=== PATIENT | female | born 1960 | race Caucasian/White ===

== ENCOUNTER → 2020-07-16 14:18 | Outpatient (CLI) | payer OTHER, SELFPAY ==
--- NOTE | 2020-07-16 | DI.MG.S_ITS ---
BILATERAL DIGITAL SCREENING MAMMOGRAM 3D/2D WITH CAD: 07/16/2020 CLINICAL: Routine screening. Comparison is made to exams dated: 12/21/2016 mammogram and 02/28/2015 mammogram - [facility]. The tissue of both breasts is heterogeneously dense. This may lower the sensitivity of mammography. Current study was also evaluated with a Computer Aided Detection (CAD) system. No significant masses, calcifications, or other findings are seen in either breast. There has been no significant interval change. IMPRESSION: NEGATIVE There is no mammographic evidence of malignancy. A 1 year screening mammogram is recommended. This exam was interpreted at Station ID: [id number]. NOTE: For mammograms, a report in lay terms will be sent to the patient. Approximately 15% of breast malignancies will not be visualized mammographically. In the management of a palpable breast mass, a negative mammogram must not discourage biopsy of a clinically suspicious lesion. Electronically Signed By: Johnson carrillo/tahmina:07/18/2020 09:18:59 letter sent: Normal Exam ACR BI-RADS Category 1: Negative 3341F
== END ==
PROVIDERS: PCP Nurse Practitioner Family; Referring Provider Nurse Practitioner Family; Visit Provider Nurse Practitioner Family
DX: Z12.31 Encounter for screening mammogram for malignant neoplasm of breast (principal)
CPT/HCPCS: 77063; 77067

== ENCOUNTER → 2020-07-18 10:21 | Outpatient (CLI) | payer OTHER, SELFPAY ==
[2020-07-18 12:16] LABS: COVID19 -Nasal RAPID Negative (Negative)
== END ==
PROVIDERS: PCP Nurse Practitioner Family; Visit Provider Surgery
DX: Z01.812 Encounter for preprocedural laboratory examination (principal); Z20.822 Contact with and (suspected) exposure to COVID-19
CPT/HCPCS: 87635; C9803

== ENCOUNTER 2020-07-19 13:12 | Day surgery (SDC) | payer OTHER, SELFPAY ==
[2020-07-19 13:36] VITALS: BP 134/77; PULSE 78; RESP 12; TEMP 36.8; O2SAT 99; BMI 23.2
[2020-07-19] MEDS: SODIUM CHLORIDE 0.9% 1,000 ML 200 ML IV (13:51)
--- NOTE | 2020-07-19 14:50 | P.HP_ITS ---
History of Present Illness History of Present Illness Date Patient Seen: 07/19/20 Time Patient Seen: 14:50 Chief [place] [facility] [place]: This is a 60-year-old woman here for her 1st screening colonoscopy. She denies any melena, hematochezia, unexplained abdominal pain, unexplained weight loss, change in bowel habit, personal or family history of colon polyps or colon cancers. She says she is otherwise in very good health. ROS: Thirteen system review is otherwise negative other than as mentioned below and in HPI. PE: GENERAL: Well groomed and cooperative. Appears stated age. Answers questions promptly and appropriately. Vital signs noted. HENT: Normocephalic, atraumatic. Hearing intact. EYES: Conjunctiva pink, sclera white, no periorbital swelling. CARDIOVASCULAR: Regular rate. No pedal edema. RESPIRATORY: Non-tachypneic, breathing comfortably on room air. GASTROINTESTINAL: Abdomen soft and non-distended GENITALURINARY: No flank tenderness. MUSCULOSKELETAL: Equal tone and mass bilaterally. SKIN: Warm, dry, soft, appropriate color for ethnicity. No other lesions, rashes, or wounds. NEURO: Alert and Oriented X 3. No gross sensory deficits, or cognitive issues. PSYCH: Appropriate affect and mood. Patient History Family & Social History Social History: household members family Tobacco & Substance use: Smoking Status Never smoker alcohol intake never Substance Use Type does not use Meds Home Medications and Allergies Home Medications Medication Instructions Recorded Confirmed Type Vitamin D3 5,000 units PO DAILY 07/19/20 07/19/20 History magnesium 400 mg PO DAILY 07/19/20 07/19/20 History vitamin H52-[id number] acid 1 mg PO DAILY 07/19/20 07/19/20 History Allergies Allergy/AdvReac Type Severity Reaction Status Date / Time No Known Drug Allergies Allergy Verified 07/19/20 13:21 Exam Vital Signs (past 8 hours): - 07/19/20 13:36 Temperature 98.2 F Pulse Rate 78 Respiratory Rate 12 Blood Pressure 134/77 Pulse Oximetry 99 Oxygen Delivery Method Room Air Assessment & Plan Assessment and plan (1) At average risk for colon cancer: Status: Acute Assessment & Plan narrative: Risks and benefits of screening colonoscopy and possible polypectomy were discussed with the patient including risk of bleeding, perforation, need for additional procedures, risks of anesthesia. The patient desires to proceed with the colonoscopy procedure. COVID-19 COVID-19 status: Negative Result date/Date tested (Pos, Neg/Pending): 07/18/20 Time Spent With Patient Time with patient: 15-24 minutes Quality VTE Deep Vein Thrombosis/Pulmonary Embolism Present on Admission: No
--- NOTE | 2020-07-19 14:53 | P.OP.ENDO_ITS ---
Operative Date/Time/Diagnoses Date of procedure: 07/19/20 Time of procedure: 14:53 Pre-op diagnosis: Average risk for colon cancer Post-op diagnosis: other (Normal colon) Procedure & Clinicians Study performed: Colonoscopy Procedural sedation performed by the endoscopist Same procedure as scheduled: Yes Indications: Average risk for colon cancer, never had a screening colonoscopy Surgeon: Juliette Abarca Procedure Notes SCOAP/Timeout: Performed Procedure in detail: The patient was brought to the room and placed in left lateral decubitus position with all bony prominences padded. A time-out was performed and then the patient was given procedural sedation starting with 2 mg of Versed and 100 mcg of fentanyl. Total of 4 mg of Versed and 150 micro g of fentanyl were given for the entire procedure. Vitals were monitored throughout the procedure and remained stable. Once adequately sedated, the procedure was begun. A rectal exam was performed revealing no abnormalities. The colonoscope was then introduced to the rectum and advanced to the cecum in the usual fashion. The cecum was identified by the appendiceal orifice, the mucosal tri- fold, and the ileocecal valve. The scope was then retracted while rotating side to side and examining each mucosal fold. At the conclusion of the procedure retroflexion was performed and small grade 1 internal hemorrhoids without stigmata of bleeding were seen. The scope was then withdrawn from the rectum the procedure was concluded. The patient tolerated the procedure well and was transferred to the PACU in stable condition. Scope withdrawal time: 6 Sedation minutes: 14 Specimen(s): none sent Complications: none Impression: Normal colon Post-procedure Recommendations: Colonscopy in 10 years Follow up: as needed Disposition: PACU
[2020-07-19] MEDS: MIDAZOLAM 5 MG/5 ML VIAL IV (15:02)
[2020-07-19] MEDS: fentaNYL 250 MCG/5 ML INJ IV (15:02)
[2020-07-19 15:15] VITALS: BP 111/51; PULSE 70; RESP 12; TEMP 36.9; O2SAT 95
[2020-07-19 15:20] VITALS: BP 110/56; PULSE 67; RESP 12; O2SAT 94
[2020-07-19 15:25] VITALS: BP 107/50; PULSE 67; RESP 16; O2SAT 94
[2020-07-19 15:31] VITALS: BP 104/53; PULSE 65; RESP 14; O2SAT 94
== END 2020-07-19 15:55 | disposition home or self-care (01) ==
PROVIDERS: PCP Nurse Practitioner Family; Referring Provider Nurse Practitioner Family; Visit Provider Surgery
PROC: 0DJD8ZZ Inspection of Lower Intestinal Tract, Via Natural or Artificial Opening Endoscopic (ICD-10-PCS; CPT 45378; principal; 2020-07-19 14:30)
DX: Z12.11 Encounter for screening for malignant neoplasm of colon (principal); K64.0 First degree hemorrhoids
CPT/HCPCS: 45378; 99152; J2250; J3010